=== PATIENT | male | born 1955 | race Caucasian/White ===

== ENCOUNTER 2019-09-30 15:36 | Outpatient (CLI) | payer MEDICARE | END 2019-09-30 15:37 | disposition home or self-care (01) | LOC: LAB 15:36 → EDBD 15:36 → LAB 15:37 | PROVIDERS: ATTEND Physician Assistant | DX: R05 Cough (principal); Z20.828 Contact with and (suspected) exposure to other viral communicable diseases | CPT/HCPCS: 81599 ==

== ENCOUNTER 2020-01-24 09:21 | Outpatient (CLI) | payer MEDICARE, OTHER | END 2020-01-24 09:22 | disposition home or self-care (01) | LOC: COV 09:21 | PROVIDERS: ATTEND Family Medicine | DX: R05 Cough (principal); M79.10 Myalgia, unspecified site; R53.83 Other fatigue; R09.81 Nasal congestion; Z20.828 Contact with and (suspected) exposure to other viral communicable diseases ==